=== PATIENT | male | born 1975 | race American Indian/Alaskan Native ===

== ENCOUNTER 2017-12-12 12:37 | Emergency (ER) | payer SELFPAY ==
[2017-12-12 15:05] LABS: Bacteria,Urine 1+ /HPF (Negative); Bilirubin,Urine SM (Negative); Blood,Urine MOD (Negative); Color,Urine Amber (Yellow); Mucus,Urine 3+ /HPF
[2017-12-12 15:06] LABS: Ictotest,Urine Negative (Negative); WBC,Urine > 182.0 /HPF (0.0-6.0)
--- NOTE | 2017-12-12 15:15 | Ultrasound Report ---
FINAL REPORT EXAM: US TESTICULAR DOPPLER COMP HISTORY: right testicular pain TECHNIQUE: Testicular ultrasound. PRIORS: None currently available. FINDINGS: RIGHT TESTICLE: 4.3 x 2.4 x 3.0 cm. Homogeneous echotexture. No distinct lesions. Flow is present. Moderate right hydrocele. Prominent right epididymal head with hyperemia. LEFT TESTICLE: 4.0 x 2.5 x 3.1 cm. Homogeneous echotexture. No distinct lesions. Flow is present. Small left hydrocele. Left epididymis is within normal limits. IMPRESSION: Moderate right and small left hydroceles. Suspect right epididymitis.
[2017-12-12] MEDS ORDERED: ROCEPHIN IM ONE (15:42)
[2017-12-12] MEDS ORDERED: VIBRAMYCIN PO ONE (15:44)
[2017-12-12] MEDS ORDERED: XYLOCAINE 1% MPF 5 mL INFILTRATI ONE (15:44)
--- NOTE | 2017-12-12 15:51 | Emergency Department Report ---
ED Male HPI - General Chief complaint: Urogenital-Male Stated complaint: GROIN PAIN Time Seen by Provider: 12/12/17 15:39 Source: patient Mode of arrival: Ambulatory Limitations: No Limitations - History of Present Illness Initial comments: This is a 42 y.o. male that presents with right testicular pain for 1 day. Patient reports swelling and pain to right testicle that started last night. He started taking tylenol and applying heating pads without improvement of pain. Pain is 10/10 and non-radiating. Denies dysuria, frequency, urgency, fever, and abdominal pain. Denies possible STD, . MD Complaint: testicle pain (right testicle), testicle swelling (right testicle) -: days(s) (1) Location: right testicle Radiation: none Severity: moderate Severity scale (0 -10): 10 Quality: aching Consistency: constant Improves with: none Worsens with: movement, other (sitting) swelling (right testicle). denies: discharge, mass, rash, urinary retention, blood in urine, dysuria, fever, nausea/vomiting, incontinence - Related Data Previous Rx's Medication Instructions Recorded Last Taken Type Doxycycline Monohydrate 100 mg PO BID 14 Days #28 tablet 12/12/17 Unknown Rx Naproxen [Naprosyn TAB] 500 mg PO BID PRN #20 tablet 12/12/17 Unknown Rx Allergies Allergy/AdvReac Type Severity Reaction Status Date / Time No Known Allergies Allergy Unverified 12/12/17 13:32 ED Review of Systems ROS: Stated complaint: GROIN PAIN Other details as noted in HPI Constitutional: denies: chills, fever, malaise Respiratory: denies: cough, orthopnea, shortness of breath, SOB with exertion, wheezing Cardiovascular: denies: chest pain, palpitations Gastrointestinal: denies: abdominal pain, nausea, vomiting, diarrhea Genitourinary: testicular pain (right testicular pain and swelling). denies: urgency, dysuria Neurological: denies: headache, weakness, paresthesias Psychiatric: denies: anxiety, depression ED Past Medical Hx - Past Medical History Previous Medical History?: No - Surgical History Past Surgical History?: No - Social History Smoking Status: Current Every Day Smoker Substance Use Type: Alcohol - Medications Home Medications: Home Medications Medication Instructions Recorded Confirmed Last Taken Type Doxycycline Monohydrate 100 mg PO BID 14 Days #28 tablet 12/12/17 Unknown Rx Naproxen [Naprosyn TAB] 500 mg PO BID PRN #20 tablet 12/12/17 Unknown Rx ED Physical Exam - General Limitations: No Limitations General appearance: alert, in no apparent distress - Respiratory Respiratory exam: Present: normal lung sounds bilaterally. Absent: respiratory distress - Cardiovascular Cardiovascular Exam: Present: regular rate, normal rhythm, normal heart sounds. Absent: systolic murmur, diastolic murmur, rubs, gallop - GI/Abdominal GI/Abdominal exam: Present: soft, normal bowel sounds. Absent: distended, tenderness, guarding, rebound, rigid - exam: Present: testicular tenderness (right), scrotal swelling (right). Absent: urethral discharge, vertical testicular lie External exam: Present: normal external exam - Neurological Exam Neurological exam: Present: alert, oriented X3, normal gait - Psychiatric Psychiatric exam: Present: normal affect, normal mood - Skin Skin exam: Present: warm, dry, intact, normal color. Absent: rash ED Course Vital Signs 12/12/17 12/12/17 13:29 16:34 Temperature 98.5 F 98.1 F Pulse Rate 69 72 Respiratory 18 16 Rate Blood Pressure 95/60 Blood Pressure 109/71 [Right] O2 Sat by Pulse 100 100 Oximetry ED Medical Decision Making - Radiology Data Radiology results: report reviewed Testicular US: Moderate right and small left hydroceles. Suspect right epididymitis. - Medical Decision Making This is a 42 y.o. male presents with right testicular pain and swelling for 1 day. Patient was examined by me. Obtained UA and testicular US. US read by radiologist and Moderate right and small left hydroceles. Suspect right epididymitis. Discussed results with patient. Given rocephin 250 mg IM and doxycycline 100 mg po in ER. Discharged home in stable condition. Start doxycycline 100 mg po bid x 14 days and naproxen 500 mg po bid, PRN for epididymitis. Discussed prevention options. F/U with PCP in 2-3 days. Critical care attestation.: If time is entered above; I have spent that time in minutes in the direct care of this critically ill patient, excluding procedure time. ED Disposition Clinical Impression: Epididymitis, Testicular/scrotal pain Disposition: TO HOME OR SELFCARE Is pt being admited?: No Does the pt Need Aspirin: No Condition: Stable Instructions: Epididymitis (ED) Additional Instructions: Take ibuprofen, naproxen, and tylenol for scrotal pain. Wear jock strap or tight underwear daily. Follow up with primary care provider in 2-3 days. Prescriptions: Doxycycline Monohydrate 100 mg PO BID 14 Days #28 tablet Naproxen [Naprosyn TAB] 500 mg PO BID PRN #20 tablet PRN Reason: Pain Referrals: [facility] [Outside] - 3-5 Days [facility] [Outside] - 3-5 Days [facility] [Outside] - 3-5 Days Forms: Work/School Release Form(ED) Time of Disposition: 15:54 Print Language: [place]
[2017-12-12 16:35] VITALS: BP 109/71
== END 2017-12-12 16:34 | disposition home or self-care (01) ==
LOC: ED 12:37
DX: N45.1 Epididymitis (principal); F17.200 Nicotine dependence, unspecified, uncomplicated
CPT/HCPCS: 81001; 93975; 96372; 99284; J0696